=== PATIENT | female | born 1965 | race African-American/Black ===

== ENCOUNTER 2017-03-23 07:04 | Day surgery (SDC) | payer BC ==
[2017-03-18 15:37] VITALS: BMI 30.8
[2017-03-23] MEDS ORDERED: PROPOFOL 20 ML ONE ×2 (07:09)
[2017-03-23] MEDS ORDERED: LIDOCAINE HCL/PF 2% SDV 5ML VIAL ONE (07:26)
[2017-03-23 12:09] VITALS: TEMP 98
[2017-03-23 12:12] VITALS: BP 133/80; PULSE 73
--- NOTE | 2017-03-25 14:55 | PATH ---
Surgical Pathology Report Patient Name: JIN TORRES [facility], [place]. Rec. #: [id number] /Age/Gender: 1965 (Age: 52) / F Account: [id number] Location: [facility]-ENDOSCOPY Taken: 03/23/2017 Received: 03/23/2017 Reported: 03/25/2017 Physicians: Joao Bach M.D. Specimen(s) Received A: BX DUODENUM B: BX ANTRUM Clinical History Preoperative diagnosis: GERD Postop diagnosis: Rule out celiac, rule out H. Pylori Final Diagnosis A. DUODENUM, BIOPSY: DUODENAL MUCOSA WITH NO PATHOLOGIC FINDINGS. Note: Features suggestive of celiac disease are not identified in this biopsy. B. ANTRUM, BIOPSY: MILD CHRONIC GASTRITIS. IMMUNOSTAIN IS NEGATIVE FOR H. PYLORI ORGANISMS. Electronically Signed Vanessa Mcconnell M.D. Gross Description A. Received in formalin, labeled "duodenum" are 2 crouch, irregular portions of soft tissue averaging 0.4 cm. in greatest dimension. The specimens are submitted in toto in one cassette. B. Received in formalin, labeled "antrum" are 2 crouch, irregular portions of soft tissue averaging 0.3 cm. in greatest dimension. The specimens are submitted in toto in one cassette. /03/23/2017 saudi03/23/2017
== END 2017-03-23 09:40 | disposition home or self-care (01) ==
LOC: FASU-ENDO 07:04
PROVIDERS: ATTEND Internal Medicine Gastroenterology
PROC: 0DB98ZX Excision of Duodenum, Via Natural or Artificial Opening Endoscopic, Diagnostic (ICD-10-PCS; principal; 2017-03-23 07:52)
PROC: 0DB68ZX Excision of Stomach, Via Natural or Artificial Opening Endoscopic, Diagnostic (ICD-10-PCS; 2017-03-23 07:52)
DX: K29.50 Unspecified chronic gastritis without bleeding (principal); Z98.84 Bariatric surgery status
CPT/HCPCS: 88305-TC; 88342-TC

== ENCOUNTER 2024-02-15 08:00 | Day surgery (SDC) | payer BC ==
[2024-02-09 13:34] VITALS: BMI 40.2
[2024-02-15 09:54] VITALS: BP 125/85; PULSE 86; RESP 16; TEMP 97.9
== END 2024-02-15 09:25 | disposition home or self-care (01) ==
LOC: FASU-ENDO 08:00
PROVIDERS: ATTEND Internal Medicine Gastroenterology
PROC: 0DB68ZX Excision of Stomach, Via Natural or Artificial Opening Endoscopic, Diagnostic (ICD-10-PCS; principal; 2024-02-15 08:35)
DX: K29.50 Unspecified chronic gastritis without bleeding (principal); K44.9 Diaphragmatic hernia without obstruction or gangrene
CPT/HCPCS: 88305-TC; 88342-TC